=== PATIENT | female | born 1935 ===

== ENCOUNTER 2018-02-02 08:36 | Day surgery (SDC) | payer OTHER ==
[~2018-02-02 08:36] MED LIST: B-100 COMPLEX100 MG PO; ELIQUIS2.5 MG PO; NEURONTIN300 MG PO; RESTORIL30 M1 PO; RIVASTIGMINE4.5 MG PO; ZOLOFT50 MG PO
== END 2018-02-02 18:35 | disposition home or self-care (01) ==
LOC: CIR.AMB 08:36
DX: M54.2 Cervicalgia (principal); Z53.09 Procedure and treatment not carried out because of other contraindication